=== PATIENT | female | born 1960 | race Caucasian/White ===

== ENCOUNTER 2017-07-23 09:32 | Emergency (ER) | payer BC ==
[~2017-07-23] VITALS: Ht 167.6 cm; Wt 98.4 kg
[2017-07-23 09:34] VITALS: TEMP 36.5; Ht 167.6 cm; Wt 98.4 kg
[2017-07-23] MEDS ORDERED: PRLSR20 PO (10:39)
[2017-07-23] MEDS ORDERED: LISI-729 PO (10:39)
[2017-07-23] MEDS ORDERED: LEVO150T PO (10:39)
--- NOTE | 2017-07-23 10:54 | DIAGNOSTIC IMAGING REPORT ---
R WRIST W/NAVICULAR MIN 3 VIEWS HISTORY: 57 years-old Female fall, wrist pain acute right wrist pain status post fall COMPARISON: None available TECHNIQUE: 4 views of the right wrist with navicular view FINDINGS: Mild radiocarpal, triscaphe, distal radial ulnar joint and first carpometacarpal osteoarthritis. Cortical irregularity with linear lucency is noted involving the dorsal distal radial metaphysis seen on only on the lateral projection with mild associated soft tissue swelling. The scaphoid appears intact. IMPRESSION: Subtle lucency with cortical irregularity involving the dorsal aspect distal radial metaphysis suggests acute nondisplaced fracture with mild associated soft tissue swelling. The above report was generated using voice recognition software. It may contain grammatical, syntax or spelling errors. Electronically signed by: José Luis Mcmillan M.D. 07/23/2017 10:53 AM Dictated Date/Time: 07/23/2017 10:50 AM
[2017-07-23 12:10] VITALS: BP 156/84; PULSE 86; O2SAT 96
--- NOTE | 2017-07-23 12:12 | EMERGENCY ROOM VISIT NOTE ---
History Report prepared by Riaz: Bruno Contreras Under the Supervision of: Dr. Soha Encinas D.O. First contact with patient: 11:02 Chief Complaint: WRIST PAIN Stated Complaint: FELL AND HURT RIGHT WRIST History of Present Illness The patient is a 57 year old female who presents to the Emergency Room with complaints of an ache-like right wrist pain that began this morning. She rates her pain a 7/10 in severity. Earlier this morning, the patient accidentally experienced a fall. When she fell, she broke her fall with her right hand, injuring her wrist. She did not lose consciousness or hit her head. Her pain is exacerbated with movement causing her pain to radiate up her arm. She notes that currently her right hand feels mildly weak. She has never injured her wrist before. Source of History: patient Onset: this morning Position: wrist (right) Symptom Intensity: 7/10 Quality: ache Timing: constant Modifying Factors (Worsening): movement Associated Symptoms: + weakness (mild to the area), No LOC Note: She did not hit her head. Review of Systems Did not injury herself in any other way during her fall. Past Medical & Surgical Medical Problems: (1) HTN (hypertension) Family History Diabetes mellitus Heart disease Hypertension Social History Smoking Status: Never Smoker Smokeless Tobacco Use: No Alcohol Use: none Drug Use: none Housing Status: lives alone Occupation Status: employed Current/Historical Medications Scheduled Levothyroxine Sodium (Synthroid), 150 MCG PO QAM Lisinopril (Prinivil), 15 MG PO QAM Omeprazole (Prilosec), 20 MG PO QPM Allergies Coded Allergies: No Known Allergies (Unverified , 07/23/17) Physical Exam Vital Signs Date Time Temp Pulse Resp B/P (MAP) Pulse Ox O2 Delivery O2 Flow Rate FiO2 07/23/17 12:10 86 20 156/84 96 Room Air 07/23/17 09:34 36.5 88 16 153/88 97 Room Air Physical Exam Right Wrist: Pain with palpation of the right lateral wrist and anatomical snuff box, good capillary refill and good sensation to the finger tips. Medical Decision & Procedures ER Provider Diagnostic Interpretation: Radiology results as stated below per my review and the radiologist's interpretation: R WRIST W/NAVICULAR MIN 3 VIEWS HISTORY: 57 years-old Female fall, wrist pain acute right wrist pain status post fall COMPARISON: None available TECHNIQUE: 4 views of the right wrist with navicular view FINDINGS: Mild radiocarpal, triscaphe, distal radial ulnar joint and first carpometacarpal osteoarthritis. Cortical irregularity with linear lucency is noted involving the dorsal distal radial metaphysis seen on only on the lateral projection with mild associated soft tissue swelling. The scaphoid appears intact. IMPRESSION: Subtle lucency with cortical irregularity involving the dorsal aspect distal radial metaphysis suggests acute nondisplaced fracture with mild associated soft tissue swelling. The above report was generated using voice recognition software. It may contain grammatical, syntax or spelling errors. Electronically signed by: José Luis Mcmillan M.D. 07/23/2017 10:53 AM Dictated Date/Time: 07/23/2017 10:50 AM ED Course 1102: Past medical records reviewed. The patient was evaluated in room A4. A complete history and physical exam was performed. An x-ray had been performed which revealed a slight cortical fracture of the distal radius. 1220: Upon reevaluation, the patient is resting. I discussed findings and results with her. Our manager of case were able to secure an appointment with orthopedics an approximate 40 minutes. We decided not to put her in Ortho- Glass splinting material and she will go directly there for casting. She has an appointment with [facility] at 1250. She verbalized agreement of the treatment plan. She was discharged home. Medical Decision The patient is a 57 year old female who presents to the ED with right wrist pain. Differential diagnosis includes wrist fracture, scaphoid fracture, and wrist strain. The patient fell on an outstretched hand. She has a cortical fracture of the distal radius. She is neurovascularly intact. Her pain is under control. She will go to [facility] from here. Medication Reconcilliation Current Medication List: was personally reviewed by me Blood Pressure Screening Patient's blood pressure: Elevated blood pressure Blood pressure disposition: Elevated BP felt to be situational Impression Primary Impression: Distal radius fracture, right Scribe Attestation The scribe's documentation has been prepared under my direction and personally reviewed by me in its entirety. I confirm that the note above accurately reflects all work, treatment, procedures, and medical decision making performed by me. Departure Information Dispostion Home / Self-Care Referrals Braum,Osito V. D.O. (PCP) Forms HOME CARE DOCUMENTATION FORM, IMPORTANT VISIT INFORMATION, WORK / SCHOOL INSTRUCTIONS Patient Instructions My [facility] Additional Instructions Go directly to [facility]. Apply ice. Keep it elevated. Problem Qualifiers Primary Impression: Distal radius fracture, right Encounter type: initial encounter Fracture type: closed Fracture morphology : unspecified fracture morphology Qualified Codes: S52.501A - Unspecified fracture of the lower end of right radius, initial encounter for closed fracture
== END 2017-07-23 12:20 | disposition home or self-care (01) ==
LOC: C.EDB 09:35 → C.EDA 12:20
DX: S52.501A Unspecified fracture of the lower end of right radius, initial encounter for closed fracture (principal); W19.XXXA Unspecified fall, initial encounter; I10 Essential (primary) hypertension; Z83.3 Family history of diabetes mellitus; Z82.49 Family history of ischemic heart disease and other diseases of the circulatory system; Z79.899 Other long term (current) drug therapy

== ENCOUNTER 2024-04-30 05:03 | Observation (INO) ==
--- NOTE | 2024-03-25 12:20 | PAT Medication Instructions ---
Medication Instructions Date of Service March 25, 2024 Home Medications levothyroxine 112 mcg tablet 112 mcg PO QAM lisinopril 10 mg tablet 10 mg PO QAM metformin 500 mg tablet 500 mg PO BID omeprazole 20 mg capsule,delayed release 20 mg PO QDL MEDICATION INSTRUCTIONS: DO NOT take the morning of surgery lisinopril 10 mg tablet 10 mg PO QAM metformin 500 mg tablet 500 mg PO BID Take morning of surgery With a small sip of water, OTHERWISE NOTHING TO EAT OR DRINK AFTER MIDNIGHT: omeprazole 20 mg capsule,delayed release 20 mg PO QDL levothyroxine 112 mcg tablet 112 mcg PO QAM Take evening before surgery metformin 500 mg tablet 500 mg PO BID Other Notes If you have any questions please call us at [phone] or [phone] or [phone] or [phone]
--- NOTE | 2024-04-02 10:36 | Anesthesiology Consultation ---
Date of Service April 02, 2024 Assessment & Plan (1) Encounter for pre-operative examination: - Check BSG AM DOS - Infectious disease screening: Per assessment on 04/02/24: No known recent infectious disease contacts or current infectious disease symptoms. - Outpatient joint assessment: Pt currently scheduled for inpatient pathway. If surgeon requests review for outpatient joint pathway, patient is an acceptable candidate for outpatient joint program from anesthesia standpoint pending surgeon's office assessment that patient is motivated, has good support and completes Same Day Joint Program preop requirements. Chart Review Chart Review: Acceptable Risk for Surgery and Patient seen in Pre Admission Testing Teaching & Discussion Pre-Anesthesia Teaching/Discussion Notes: Instructed NPO after midnight before surgery,except medications with 15 cc of water. Medication instructions pro vided according to the PAT guidelines. History Surgery Operation Date: 04/30/24 07:15 Proposed Procedures p Right Knee Arthroplasty - Joao Wallace MD Height/Weight Height: 5 ft 6 in Weight: 85 kg Allergies Allergy/AdvReac Type Severity Reaction Status Date / Time No Known Allergies Allergy Verified 03/21/24 09:39 Medications Home Medications Medication Instructions Recorded Confirmed Last Taken levothyroxine 112 mcg tablet 112 mcg PO QAM 03/21/24 03/21/24 Unknown lisinopril 10 mg tablet 10 mg PO QAM 03/21/24 03/21/24 Unknown metformin 500 mg tablet 500 mg PO BID 03/21/24 03/21/24 Unknown omeprazole 20 mg capsule,delayed 20 mg PO QDL 03/21/24 03/21/24 Unknown release Past Medical History Medical History Diabetes DISH (diffuse idiopathic skeletal hyperostosis) History of COVID-19 (05/2023) Symptoms resolved History of Graves' disease History of kidney stones History of radioactive iodine thyroid ablation HTN (hypertension) Hypothyroid Exercise / Class Metabolic Activity II 4-5 Yardwork/Stairs/Walk up hill (one FS: No CP, no SOB) Past Family History Family History Mother Family history of reaction to anesthesia Confusion with anesthesia at an older age Past Surgical History Surgical History History of ankle surgery Right, pins (subsequent removal) History of endometrial ablation History of left cataract surgery History of postoperative nausea and vomiting History of right cataract surgery Past Anesthesia History No Hx of Anesthesia Complications * Mother: Confusion with anesthesia at an older age History of PONV History of PONV Social History Smoking Status: Never smoker Do You Dip or Chew Tobacco: No Hx Alcohol Use: No Hx Substance Use: No substance use type: does not use Review of Systems Patient denies chest pain, shortness of breath, dyspnea on exertion, fever, chills, cough, wheezing, palpitations. Physical Exam Vital Signs BP 120/77 P 83 TEMP 97.9 SP02 99%RA RESP 16 Physical Full cervical extension range of motion. Full TMJ range of motion. TMD 3 finger breaths Mallampati Score II Dentition: intact, + implant (left lower side) Lungs: clear throughout to auscultation Cardiac: regular rate and rhythm, no murmurs noted Spine: normal Carotid arteries: negative bruit Extremities: no LE edema Lab Results Anesthesia Preop Results Results Anesthesia Widget: WBC 7.75 K/ul (4.8-10.8) 04/02/24 Hgb 12.0 g/dl (12.0-16.0) 04/02/24 Hct 37.2 % (37.0-47.0) 04/02/24 Plt 377 K/uL (130-400) 04/02/24 Na 139 mmol/L (136-145) 04/02/24 K 4.0 mmol/L (3.5-5.1) 04/02/24 Cl 103 mmol/L (98-107) 04/02/24 CO2 27 mmol/L (21-32) 04/02/24 BUN 13 mg/dl (6-23) 04/02/24 Creat 0.73 mg/dl (0.6-1.2) 04/02/24 Glucose Level 85 mg/dl (70-99(Fasting)) 04/02/24 PT 10.0 Seconds (9.0-12.0) 04/02/24 PTT 26 Seconds (21-31) 04/02/24 INR 0.9 (0.9-1.1) 04/02/24 HA1c 6.1 % (4.5-5.6) H 04/02/24 Urine Color Yellow 04/02/24 Urine Appearance Clear (Clear) 04/02/24 Urine pH 5.5 (4.5-7.5) 04/02/24 Urine Specific [place] 1.027 (1.000-1.030) 04/02/24 Urine Protein Negative (Negative) 04/02/24 Urine Glucose (UA) Negative (Negative) 04/02/24 Urine Ketones Negative (Negative) 04/02/24 Urine Blood Negative (Negative) 04/02/24 Urine Nitrite Negative (Negative) 04/02/24 Urine Bilirubin Negative (Negative) 04/02/24 Urine Urobilinogen Negative (Negative) 04/02/24 Urine Leukocyte Esterase Negative (Negative) 04/02/24 Blood Type A Positive 04/02/24 Antibody Screen NEGATIVE 04/02/24 Testing Electrocardiogram Date: 04/02/24 NSR at 79bpm. "Normal ECG" Chest X-Ray Date: 04/02/24 FINDINGS: No lines and tubes are seen. The cardiomediastinal silhouette is normal. The lungs are clear. No evidence of pleural effusion or pneumothorax. IMPRESSION: No acute chest disease.
--- NOTE | 2024-04-27 14:03 | History & Physical Report ---
Date of Service April 27, 2024 Assessment & Plan (1) Osteoarthritis of right knee: Plan: Right knee advanced osteoarthritis [id number]. Plan is to proceed with a right total knee replacement T[employer]z [employer] Nephew journey total knee replacement with PSI guide. Osteoarthritis type: primary Qualified Code(s): M17.11 - Unilateral primary osteoarthritis, right knee History of Present Illness Chief Complaint: Chronic right knee pain Primary Care Provider: Osito Redd DO 64-year-old female with progressive pain and disability due to right knee osteoarthritis. Does have bilateral knee arthritis but the left knee is not as severe as the right. She has had injections in her knees but now these are not being effective on the right knee. Patient denies headaches, sweats, fevers, chills, double vision, blurred vision, cough, sore throat, chest pain, sob, wheezing, n/v/d/c, numbness, tingling, fatigue, urinary symptoms, mood disorders. ROS positive for hypertension, diabetes ,thyroid disease, osteoarthritis of the spine, acid reflux ,hiatal hernia ,kidney stones. Allergies Allergy/AdvReac Type Severity Reaction Status Date / Time No Known Allergies Allergy Verified 03/21/24 09:39 Home Medications Medication Instructions Recorded Confirmed Type levothyroxine 112 mcg tablet 112 mcg PO QAM 03/21/24 03/21/24 History lisinopril 10 mg tablet 10 mg PO QAM 03/21/24 03/21/24 History metformin 500 mg tablet 500 mg PO BID 03/21/24 03/21/24 History omeprazole 20 mg capsule,delayed 20 mg PO QDL 03/21/24 03/21/24 History release Past Med/Surg History Problem List (Updated 04/27/24 @ 14:01 by Joao Wallace MD) Osteoarthritis of right knee Encounter for pre-operative examination Distal radius fracture, right (Acute) HTN (hypertension) (Chronic) Medical History History of COVID-19 (05/2023) Symptoms resolved DISH (diffuse idiopathic skeletal hyperostosis) History of kidney stones History of radioactive iodine thyroid ablation History of Graves' disease Hypothyroid HTN (hypertension) Diabetes Surgical History History of postoperative nausea and vomiting History of endometrial ablation History of left cataract surgery History of right cataract surgery History of ankle surgery Right, pins (subsequent removal) Family History Mother Family history of reaction to anesthesia Confusion with anesthesia at an older age Social History Smoking Status: Never smoker Do You Dip or Chew Tobacco: No; Hx Alcohol Use: No Hx Substance Use: No Preferred Language: Tajik Communication Ability: Effective County Attorney Required: No Beliefs That Will Affect Care: None Current Living Situation: Alone Other Information That Helps Us Care for You: No Feels Safe at Home: Yes Assistive Devices: Glasses Review of Systems All systems reviewed & are unremarkable except as noted in HPI & below Physical Exam Constitutional: WD/WN, vitals as above Respiratory: normal respiratory effort; no respiratory distress Cardiovascular: Rate/Rhythm: regular rate and regular rhythm Musculoskeletal: Right knee 10 to 100 degrees range of motion. Mild crepitation with a valgus knee and lateral joint line tenderness. No instability. Skin: no rashes, warm and dry Neurologic: normal touch/pain/proprioception Psychiatric: A+Ox3, euthymic affect Results & Data Diagnostic Findings Right knee x-rays weightbearing films [id number] lateral compartment with patellofemoral and lateral compartment osteoarthritis. Valgus knee alignment.
[2024-04-30] MEDS: ACETAMINOPHEN 500 MG TAB PO SCH ×2 (05:59→13:23)
[2024-04-30] MEDS: METOCLOPRAMIDE HCL 10 MG TABLET PO SCH (06:00)
[2024-04-30] MEDS: FAMOTIDINE 20 MG TAB PO SCH (06:00)
[2024-04-30] MEDS: LR 60ML/HR IV SCH (06:00)
[2024-04-30] MEDS: LR 500ML BOLUS, THEN 15ML/HR IV SCH (06:00)
[2024-04-30] MEDS: CeleBREX 200 MG CAP PO SCH (06:00)
[2024-04-30] MEDS: GABAPENTIN 300 MG CAP PO SCH (06:00)
[2024-04-30] MEDS ORDERED: BUPIVACAINE 0.5 % 5 MG/1 ML PF 10ML VIAL ONE (06:15)
[2024-04-30] MEDS ORDERED: ROPIVACAINE 0.5% 5 MG/ML 30 ML VIAL ONE (06:15)
[2024-04-30] MEDS ORDERED: ATROPINE SULFATE 0.1 MG/ML 10ML SYR IV PRN (06:30)
[2024-04-30] MEDS ORDERED: ONDANSETRON INJ 2 MG/ML 2 ML VIAL IV PRN (06:30)
[2024-04-30] MEDS ORDERED: ePHEDrine sulfate 50 MG/ML AMP IV PRN (06:30)
[2024-04-30] MEDS ORDERED: fentaNYL citrate PF 100 MCG/2 ML VIAL IV PRN (06:30)
[2024-04-30] MEDS ORDERED: MIDAZOLAM HCL 1 MG/ML 2ML VIAL ONE ×2 (06:43)
[2024-04-30] MEDS: TRANEXAMIC ACID 1,000 MG **IV Pre-op IV SCH (07:01)
--- NOTE | 2024-04-30 07:03 | History & Physical Bridge Note ---
Date of Service April 30, 2024 History & Physical Bridge Note I have examined the patient, reviewed the History & Physical and in the interval since the performance of the History & Physical I have noted the following changes of clinical significance: no changes noted
[2024-04-30] MEDS: ceFAZolin 2000MG 2,000 MG/15 ML SYR IV SCH ×2 (07:17→15:22)
[2024-04-30] MEDS ORDERED: KETAMINE HCL 10MG/ML SYR ONE (08:07)
[2024-04-30] MEDS ORDERED: fentaNYL citrate PF 100 MCG/2 ML VIAL ONE (08:08)
[2024-04-30] MEDS ORDERED: PROPOFOL IV EMULSION 10 MG/ML 20 ML VIAL IV ONE (08:09)
[2024-04-30] MEDS ORDERED: ONDANSETRON INJ 2 MG/ML 2 ML VIAL ONE (08:12)
[2024-04-30] MEDS: ORTHO JOINT ANESTHETIC ONE (08:18)
[2024-04-30] MEDS: TRANEXAMIC ACID 1,000 MG **IV Intra-op IV SCH (08:36)
[2024-04-30] MEDS: ROPIV 0.5% 246mg, Ketorolac 30mg, EPINEPHrine 0.5mg in NSS INFIL SCH (08:45)
--- NOTE | 2024-04-30 08:51 | Operative Report ---
Post Operative Report Pre & Post Diagnosis Operation Date: 04/30/24 07:00 Pre-Op Diagnosis: Right Knee Osteoarthritis Post-Op Diagnosis: Right Knee Osteoarthritis I identified the patient and participated in the time-out.: Yes Procedure Operation Date: 04/30/24 07:00 Actual Procedures p Right Knee Arthroplasty(Right), darnell and Acticoat superficial wound VAC application- Joao Wallace MD Surgeon Joao Wallace MD [place] Operator Jason ROWLAND Estimated Blood Loss 5 Findings Consistent with Post-Op Diagnosis Specimens Bone cuts Drains 2 Hemovac Anesthesia Type MAC Spinal Regional Complications none Disposition Disposition: Recovery Room Indications 64-year-old female with chronic progressive osteoarthritis right knee failed conservative management. X-rays demonstrate she is [id number] lateral compartment shows tricompartmental osteoarthritic changes. Description of Procedure The patient was taken to the operating room and anesthetized under spinal MAC regional block. Patient was placed supine on the the operating table. A pneumatic tourniquet was placed about the right upper thigh. The knee exam demonstrated valgus knee [id number] lateral compartment no instability good range of motion aside from about a 5 degree flexion contracture. The involved leg was elevated exsanguinated with Esmarch bandage and the pneumatic tourniquet was raised to 275 millimeters mercury. A longitudinal incision was made across the anterior knee. Skin flaps were elevated. An incision was made into the medial retinaculum and extended up into the mid third of the quadriceps tendon and extended down to the tibial tubercle. Intra-articular findings demonstrated tricompartmental osteoarthritis grade 4 changes on the medial femoral condyle grade 4 lateral femoral condyle and tibial plateau grade 4 patella trochlear groove area. The knee was exposed by excising cruciate ligaments and menisci. The infrapatellar fat pad was resected. The fat pad over the anterior femur at the upper aspect of the articular surface was resected for placement of the component in that area. A subperiosteal peel lateral release was performed around the patella. The Tellez [employer] Nephew journey 2.0 posterior stabilized total knee arthroplasty system was utilized for the procedure. The custom femoral cutting guide was pinned in position. The distal femoral cut was made. The size 5, 5 in 1 cutting block was placed. The anterior posterior and chamfer cuts were made. The knee was extended and a free hand cut technique was performed to the patella. The patella width was measured and the width was reproduced using a 32 patella component. The excess lateral facet was beveled off to prevent any impingement. 3 drill holes are made for the patella component pegs. The tibia was then subluxed. The custom tibial cutting block was pinned in position and the proximal tibial cut was made with the oscillating saw. Flexion and extension gaps were balanced. Lateral capsular, IT band and popliteus tendon releases were required. The size 4 tibial trial was externally rotated in line with the tibial tubercle and pinned in position. The punch for the stem was used. The femoral trial was inserted and centered the notch cutting devices were used and the collet was placed. Tibial trials were used for the insert. The size 12 trial gave balanced ligaments through full range of motion. Patella tracking was assessed with range of motion. The patella tracked centrally. The trials were removed. The Orthomix anesthetic cocktail was injected per protocol. The cut bone surfaces and soft tissue were copiously irrigated with pulsatile lavage saline solution. The final components were cemented with Refobacin cement. The final components were Tellez [employer] Nephew journey 2.0 size 5 right posterior stabilized femoral component, right tibial component size 4, 12 mm tibial polyethylene and a 32 mm symmetrical patella. Xperience irrigation was placed over metal tray prior to polyethyle insertion. After the cement cured, the knee was then copiously irrigated with pulsatile lavage Xperience solution. 2 drains were brought out laterally connected to Hemovac. The quadriceps tendon and medial retinaculum were closed with #2 FiberWire sutures in the medial retinaculum and distal quadriceps tendon apex of the quadriceps tendon repair and another suture over the level of the tibial polyethylene and additionally 0 strata fix from the superior quad tendon incision down to the inferior pole the patella and the inferior medial reti naculum was repaired with [id number] #1 Vicryl sutures. The knee was taken through full range of motion and repair was secure. Knee range of motion was 0 through 130 degrees. the subcutaneous tissues were closed with 2-0 Vicryl sutures. The skin was closed with surgical ophelia. A darnell and Acticoat superficial wound VAC was applied. The tourniquet was let down and the patient had good capillary refill to the extremity. The patient tolerated the procedure well. My physician senior executive assistant Jason ROWLAND participated as funeral assistant and was integral part in all aspects of the procedure including prepping, draping, leg positioning, soft tissue retraction, instrument management and assisted in the closure , darnell and Acticoat superficial wound VAC application and will participate in postoperative care the patient. I attest to the content of the Intraoperative Record and any orders documented therein. Any exceptions are noted below.
--- NOTE | 2024-04-30 09:59 | Anesthesiology Progress Note ---
Date of Service April 30, 2024 Anesthesia Post Procedure Vital Signs Vital Signs: Temp Pulse Pulse Resp BP Pulse Ox O2 Del Method 04/30/24 09:50 75 15 137/80 100 Room Air 04/30/24 09:40 74 15 139/83 100 Room Air 04/30/24 09:33 36.3 C L 82 18 134/70 100 Oxymask 04/30/24 05:56 36.5 C 79 20 139/90 99 Room Air O2 Flow Rate 04/30/24 09:50 04/30/24 09:40 04/30/24 09:33 4 04/30/24 05:56 Notes Mental Status: alert / awake / arousable Patient Amnestic to Procedure: Yes Nausea / Vomiting: adequately controlled Pain: adequately controlled Airway Patency, RR, SpO2: stable & adequate BP & HR: stable & adequate Hydration State: stable & adequate Neuraxial Anesthesia: was administered and sensory block is resolving Anesthetic Complications: no major complications apparent
--- NOTE | 2024-04-30 10:02 | XRay Report ---
XR knee RT 1 or 2V routine CLINICAL HISTORY: Postoperative evaluation. COMPARISON: Right knee MRI March 18, 2024. FINDINGS: Alignment of the total right knee arthroplasty is anatomic. There is no periprosthetic fra cture or unexpected radiopaque foreign body. There are skin ophelia and surgical drains. IMPRESSION: Expected findings following total right knee arthroplasty. ACT 112: Negative or not required by law. Electronically signed by: Kenrick Mccabe M.D. 04/30/2024 10:00 AM
[2024-04-30] MEDS ORDERED: PHARMACY GLYCEMIC MGMT CONSULT PRN (10:08)
[2024-04-30] MEDS ORDERED: bisacodyL 10 MG SUPP PR PRN (10:08)
[2024-04-30] MEDS ORDERED: diphenhydrAMINE Capsule 25 MG CAP PO PRN (10:08)
[2024-04-30] MEDS ORDERED: MAGNESIUM HYDROXIDE SUSP 30 ML UDC PO PRN (10:08)
[2024-04-30] MEDS ORDERED: HYDROmorphone INJ 0.5 MG/0.5 ML SYR IV PRN (10:08)
[2024-04-30] MEDS ORDERED: ALUMINUM/MAGNESIUM SUSP 30 ML UDC PO PRN (10:08)
[2024-04-30] MEDS ORDERED: NALOXONE HCL 0.4 MG/1 ML VIAL/CARP IV PRN (10:08)
[2024-04-30] MEDS ORDERED: GLUCOSE 10 TAB/TUBE PO PRN (11:00)
[2024-04-30] MEDS ORDERED: GLUCAGON FOR INJ 1 MG VIAL SQ PRN (11:00)
[2024-04-30] MEDS ORDERED: DEXTROSE 50% 50 ML SYRINGE IV PRN (11:00)
[2024-04-30] MEDS ORDERED: GLUCOSE 40% GEL 15 GM TUBE PO PRN (11:00)
[2024-04-30] MEDS ORDERED: CARBOHYDRATES FOR HYPOGLYCEMIA PO PRN (11:00)
--- OUTSIDE RECORDS SUMMARY | 2024-04-30 11:48 | External Medical Summary | Summary of Care ---
Author Name Unknown Organization [facility] Address [address] [address] Phone [phone] Care Team Providers Care Dress Fitter Name Role Phone Tramaine Garvin DO, David Vincent Primary Care Provid er Reason for Visit * Reason Onset Date Comments Medication Refill 04/03/2024 Encounter Details Date Type Department Care Team (Late st Contact Info) Description 04/03/[address] [facility] [address] [place] [address] Nadia Redd Jr., DO [address] [place] [address] HTN, goal below 140/90 Allergies No known active allergiesdocumented as of this encounter (statuses as of 04/04/2024) Medications Medication Sig Dispensed Refills Start Date End Date Status metFORMIN HCl 500 MG Oral Tablet (Glucophage) Take 1 Tablet by mouth 2 times a day with morning and evening meals. 180 Tablet 2 01/09/2024 Active Omeprazole 20 MG Oral Capsule Delayed Release Take 1 Capsule by mouth in the morning. 90 Capsule 2 01/09/2024 Active Levothyroxine Sodium 112 MCG Oral Tablet (Levoxyl) Take 1 Tablet by mouth in the morning. 90 Tablet 2 01/24/2024 Active Lisinopril 10 MG Oral Tablet (Prinivil)Indicat ions:HTN, goal below 140/90 Take 1 Tablet by mouth in the morning. 90 Tablet 1 04/04/2024 Active Lisinopril 10 MG Oral Tablet (Prinivil)Indicat ions:HTN, goal below 140/90 Take 1 Tablet by mouth in the morning. 90 Tablet 1 09/03/2023 04/03/2024 Discontinued (Refill) documented as of this encounter (statuses as of 04/04/2024) Active Problems Problem Noted Date Diagnosed Date Hx of actinic keratosis 07/24/2022 Type 2 diabetes mellitus wit h hemoglobin A1c goal of less than 7.0% 04/21/2020 Hypothyroidism, postablative 01/14/2016 Gastroesophageal reflux disease with esophagitis 01/14/2016 Multiple thyroid nodules 12/15/2015 Overview: Subcm, 1 each lobe Advance directive on file 04/08/2014 Overview: No, Advance Directive brochure given to patient at prior appointment. UNSPECIFIED ABNORMAL MAMMOGR AM-FOCAL ASYMMETRY IN LEFT BREAST 02/06/2011 Diaphragmatic hernia 11/05/2008 Overview: Incidental finding on CT abd/pelvis. Started on omeprazole. HTN, goal below 140/90 10/21/2007 documented as of this encounter (statuses as of 04/04/2024) Resolved Problems Problem Noted Date Diagnosed Date Resolved Date Diabetes mellitus without complication 04/21/2020 04/21/2020 Prediabetes 07/01/2018 04/29/2020 Overview: Per Prediabetes protocol #1 IFG (impaired fasting glucose) 04/03/2018 08/09/2020 HYPOTHYROIDISM NOS 07/22/2007 6 documented as of this encounter (statuses as of 04/04/2024) Immunizations Name Administration Dates Next Due COVID-19 mRNA, LNP-s, No Pre serve, 10 mcg, Ages 5-11 (Pfizer) 04/27/2021 COVID-19 mRNA, LNP-s, No Pre serve, 2-Dose Series (Freebase) 08/24/2020,07/27/2020 Covid-19, Mrna, Lnp-s, Pf, B ivalent, 30 Mcg, IM, 12 yrs and above (Freebase) 03/07/2022 Pneumococcal Conjugate Vacci ne, 20-valent ([id number]) 03/30/2023 Seasonal Influenza Vac., MDV , IM, 0.5 mL (Fluzone) 03/29/2016,04/07/2015,03/25/2013,2011,03/13/2011,05/02/2008 Seasonal Influenza Virus Vac cine, Unspecified Formulation 03/22/2021,04/04/2018 Seasonal Influenza, High Dos e, Trivalent, PF, IM (Fluzone HD) 03/01/2024 Seasonal Influenza, PF, 6 M & above, IM , (FluLaval or Fluzone) 03/03/2023,03/29/2020 Seasonal Influenza, QUAD, wi th Preserv, 6 mons & Above, 0.5 mL, IM 03/29/2017 Seasonal Influenza, Quadriva lent Hd (Fluzone Hd) 03/04/2022 TD, Preservative Free 04/18/2019 TDAP, Age 7 and older, IM (Adacel) 01/24/2008 Varicella Zoster Vaccine (Adult) 06/05/2022,03/18 Zoster Vaccine Recombinant (Shingrix) 06/05/2022 ,04/03/2022 documented as of this encounter Social History Tobacco Use Types Packs/Day Years Used Date Smoking Tobacco: Never Smokeless Tobacco: Never Alcohol Use Standard Drinks/Week Comments No 0 (1 standard drink = 0.6 oz pur e alcohol) PHQ-2 Answer Date Recorded PHQ Adult Total Score 0 10/01/2023 Hunger Vital Sign Answer Date Recorded Within the past 12 months, y ou worried that your food would run out before you got the money to buy more. Never true 10/01/19 24 Within the past 12 months, t he food you bought just didn't last and you didn't have money to get more. Never true 10/01/2023 Childcare Answer Date Recorded Do you feel overwhelmed with taking care of a child, family member or friend? No 10/01/2023 Does your family need help f inding childcare? (Household - for ages 0-17 years) Not on file 10/01/2023 Clothing Answer Date Recorded Have you been unable to get clothing when it was really needed? No 10/01/2023 Is your family able to get c lothes or diapers when needed? (Household - for ages 0-17 years) Not on file 10/01/2023 Personal Safety Answer Date Recorded Do you feel unsafe or have concerns for your saf ety? No 10/01/2023 Do you have concerns for you r family's safety? (Household - for ages 0-17 years) Not on file 10/01/2023 Utilities Answer Date Recorded Do you have trouble paying y our heating, water, or electric bill? No 10/01/2023 Is your family able to pay t he heat, water, or electric bill? (Household - for ages 0-17 years) Not on file 10/01/2023 Does your family have access to good internet? (Household - for ages 0-17 years) Not on file 10/01/2023 Employment Status Answer Date Recorded Are you unemployed or without regular income? No 10/01/2023 Does the household have a re gular source of income? (Household - for ages 0-17 years) Not on file 10/01/2023 Social Connections Answer Date Recorded How often do you feel lonely or isolated from th ose around you? Never 10/01/2023 Financial Resource Strain Answer Date R ecorded Do you have any trouble payi ng for your medications, or do you think you might in the future? No 10/01/2023 Does your family have troubl e paying for medicine? (Household - for ages 0-17 years) Not on file 10/01/2023 Transportation Needs Answer Date Record ed READ ONLY Do you have troubl e getting a ride to medical visits or work? Never True 10/01/2023 Does your family have a hard time getting a ride to doctors visits? (Household - for ages 0-17 years) Not on file 10/01/2023 Has lack of transportation k ept you from medical appointments, meetings, work, or from getting things needed for daily living? Check all that apply. (Adult - for ages 18 years and over) Not on file 10/01/2023 Do you (or your family) have trouble finding or paying for a ride (transportation)? (Household - for ages 0-17 years) Not on file 10/01/2023 Housing Stability Answer Date Recorded Do you currently live in a s helter or have no steady place to sleep at night? No 10/01/2023 READ ONLY Do you think you a re at risk of becoming homeless? No 10/01/2023 Does your family worry about paying for your home or becoming homeless? (Household - for ages 0-17 years) Not on file 0 10/01/2023 Are you homeless or worried that you might be in the future? (Adult - for ages 18 years and over) Not on file Are you (or your family) jeni eless or worried that you might be in the future? (Household - for ages 0-17 years) Not on file Food Insecurity Answer Date Recorded Do you need food for this week? No 10/01/2023 Are you able to get enough f ood for your family? (Household - for ages 0-17 years) Not on file 10/01/2023 Does your family need food t his week? (Household - for ages 0-17 years) Not on file 10/01/2023 Do you always have enough fo od for your family? (Household - for ages 0-17 years) Not on file 10/01/2023 Sex and Gender Information Value Date Recorded Sex Assigned at Female 04/21/2020 6:38 PM EST Gender Identity Female 04/21/2020 6:38 PM EST Sexual Orientation Choose not to disclose 2019 6:38 PM EST Job Start Date Occupation Industry Not on file Not on file Not on file documented as of this encounter Miscellaneous Notes * Telephone Encounter - Devora Marks RPh - 04/04/2024 11:32 PM EDTSigned Prescriptions: Disp Refills Lisinopril 10 MG Oral Tablet (Prinivil) 90 Tab*1 Sig: Take 1 Tablet by mouth in the morning.Authorizing Provider: NADIA REDD JR User: DEVORA MARKS documented in this encounter Plan of Treatment Upcoming Encounters Date Type Department Care Team (Late st Contact Info) Description 04/09/2024 5:40 PM EDT Office Visit [facility] [address] [place] [address] Tramaine Garvin, Nadia Gordon DO [address] [place] [address] Health Maintenance Due Date Last Done Comments Hepatitis C Screening 1976 Colonoscopy 2003 Sigmoidoscopy 2003 Fecal Occult Blood Test 10/29/2014 10/30/19 14, 09/04/2012, 08/23/2011, Additional history exists Zoster Vaccines (3 of 3) 07/31/2022 022, 06/05/2022, 04/03/2022, Additional history exists DXA Scan 2023 COVID-19 Vaccine ( season) 2024 03/07/2022, 04/27/2021, 08/24/2020, Additional history exists Diabetic Foot Exam 03/30/2024 03/30/2023, 1 , 03/22/2021 Adult Wellness Visit 2024 Diabetic Eye Exam 08/29/2024 08/30/2023, , 11/01/2021, Additional history exists Albumin/Creatinine Ratio 09/11/2024 024, 09/18/2022, 04/05/2021 Depression Screening 09/30/2024 10/01/2023 HbA1c 09/30/2024 04/01/2024, 08/17, 03/14/2023, Additional history exists Mammogram 02/12/2025 02/13/2024, 01/16, 01/30/2022, Additional history exists GFR 04/01/2025 04/01/2024, 08/17, 03/14/2023, Additional history exists TSH 04/01/2025 04/01/2024, 08/17, 03/14/2023, Additional history exists Cologuard 12/18/2025 12/18/2022, 11/17, 12/07/2022 Colorectal Cancer Screening 12/18/2025 Lipid Panel 04/01/2029 04/01/2024, 08/17, 03/14/2023, Additional history exists DTap/Tdap Vaccines (3 - Td or Tdap) 04/18/2029 04/18/2019, 01/24/2008 Cervical Cancer Screening Discontinued Pap Smear Discontinued 12/14/2015, 10/16, 09/04/2012, Additional history exists Pneumococcal Vaccine: 65+ Years Completed 03/30/2023 Influenza Vaccine (FLU shot) Completed 03/01/2024, 03/03/2023, 03/04/2022, Additional history exists HPV (Gardasil) Vaccine Aged Out No lo nger eligible based on patient's age to complete this topic HPV/Co-Test Discontinued Hepatitis B Vaccine Aged Out No longe r eligible based on patient's age to complete this topic MENINGOCOCCAL (MENACTRA/MENVEO) Aged Out No longer eligible based on patient's age to complete this topic documented as of this encounter Medical Devices Implanted Type Area Secured Entrance Monitor Device Identifier Shelf Expiration Date Model / Serial / Lot Lens Li61ao 13.00mm 15.50 - [id number] - [id number] Implanted:Qty: 1 on 12/21/2022 by Heraclio Dutta MD at OR [facility] Right: Eye [employer] 09/16/2027 [id number] / [id number] / [id number] Lens Li61ao 13.00mm 15.50 - [id number] - [id number] Implanted:Qty: 1 on 12/28/2022 by Heraclio Dutta MD at OR [facility] Left: Eye [employer] 08/16/2027 [id number] / [id number] / [id number] documented as of this encounter Visit Diagnoses Diagnosis HTN, goal below 140/90 Unspecified essential hypertension documented in this encounter Advance Directives * No Code (Latest Code Status on File) Date Activated Date Inactivated Comments 12/28/2022 7:23 AM 12/28/2022 1:33 PM This order r eflects the patients wishes and were consensually agreed upon. Question Answer Comments Discussion of Advance Directives occurred with: Patient Does the patient have a Living Will? No Does the patient have Health Care Power of Attor jona? No * No Code Date Activated Date Inactivated Comments 12/21/2022 6:35 AM 12/21/2022 12:46 PM This order re flects the patients wishes and were consensually agreed upon. Question Answer Comments Discussion of Advance Directives occurred with: Patient Does the patient have a Living Will? No Does the patient have Health Care Power of Attor jona? No Care Teams Dress Fitter Relationship Specialty Start Date End Date Nadia Redd Jr., DO [address] [place] [address] PCP - General Family Medicine 01/16/11 documented as of this encounter
--- OUTSIDE RECORDS SUMMARY | 2024-04-30 11:48 | External Medical Summary | Summary of Care ---
Author Name Unknown Organization [facility] Address [address] [address] Phone [phone] Care Team Providers Care Welding Machine Operator Name Role Phone Tramaine Garvin DO, David Vincent Primary Care Provid er Reason for Visit * Reason Onset Date Comments Follow Up Pre-op Surgery 1 06/30/[address] Wallace right knee replacement. Routine Exam 04/09/2024 Encounter Details Date Type Department Care Team (Late st Contact Info) Description 04/09/2024 5:40 PM EDT Office Visit [facility] [address] [address] Osito Redd Jr., DO [address] [address] Pre-op evaluation*; Type 2 diabetes mellitus with hemoglobin A1c goal of less than 7.0% ([facility]); Hypothyroidism, postablative; Multiple thyroid nodules; HTN, goal below 140/90; Gastroesophageal reflux disease with esophagitis, unspecified whether hemorrhage Allergies No known active allergiesdocumented as of this encounter (statuses as of 04/09/2024) Medications Medication Sig Dispensed Refills Start Date [...] 01/24/2024 Active Lisinopril 10 MG Oral Tablet (Prinivil)Indication s:HTN, goal below 140/90 Take 1 Tablet by mouth in the morning. 90 Tablet 1 04/04/2024 Active documented as of this encounter (statuses as of 04/09/2024) Active Problems Problem Noted Date Diagnosed Date [...] as of this encounter (statuses as of 04/09/2024) Resolved Problems Problem Noted Date Diagnosed Date Resolved Date Diabetes mellitus without complication 04/21/2020 04/21/2020 Prediabetes 07/01/2018 04/29/2020 Overview: Per Prediabetes protocol #1 IFG (impaired fasting glucose) 04/03/2018 08/09/2020 HYPOTHYROIDISM NOS 07/22/2007 6 documented as of this encounter (statuses as of 04/09/2024) Immunizations Name Administration Dates Next Due COVID-19 mRNA, LNP-s, No Pre serve, 10 mcg, Ages 5-11 (Pfizer) 04/27/2021 COVID-19 mRNA, LNP-s, No Pre serve, 2-Dose Series (Adonit) 08/24/2020,07/27/2020 Covid-19, Mrna, Lnp-s, Pf, B ivalent, 30 Mcg, IM, 12 yrs and above (Pfizer) 03/07/2022 Covid-19, Mrna, Lnp-s, Pf, B ivalent, 50 Mcg, IM, 12 yrs and above (Moderna) 03/18/2024 Pneumococcal Conjugate Vacci ne, 20-valent ([id number]) 03/30/2023 Seasonal Influenza Vac., MDV , IM, [...] Date Smoking Tobacco: Never Smokeless Tobacco: Never Tobacco Cessation:Counseling Given: No Alcohol Use Standard Drinks/Week Comments No 0 [...] 10/01/2023 Does the household have a re lar source of income? (Household - for ages [...] on file documented as of this encounter Last Filed Vital Signs Vital Sign Reading Time Taken Comments Blood Pressure 110/68 04/09/2024 5:21 PM EDT Pulse 88 04/09/2024 5:21 PM EDT Temperature 36.3 C (97.3 F) 04/09/2024 5:21 PM ED T Respiratory Rate 16 04/09/2024 5:21 PM EDT Oxygen Saturation 98% 04/09/2024 5:21 PM EDT Inhaled Oxygen Concentration - - Weight 84.8 kg (187 lb) 04/09/2024 5:21 PM EDT Height 167.6 cm (5' 6") 04/09/2024 5:21 PM EDT Body Mass Index 30.18 04/09/2024 5:21 PM EDT documented in this encounter Progress Notes * Osito Redd Jr., DO - 04/09/2024 5:37 PM EDT Subjective: Erika Toledo is a 64 year old female. Chief Complaint Patient presents with Follow Up Pre-op Surgery 04/30/[address] Wallace right knee replacement. Routine Exam HPI: Patient presents today for pre op evaluation as well as 6 month follow-up. Overall doing well,no new complaints. No personal or family history of problems with surgery or anesthesia. No CP or SOB. Other than knee pain, no problems climbing flight of stairs. Already met with surgical team and [facility] and had testing done there- not available for review at this time. Had labs for 6 month follow up and reviewed- overall stable, lipids up slightly. Hope to see more exercise with knee replacement, but if not improving or getting worse, start statin. No other new complaints. Results for orders placed or performed in visit on 04/01/24 HEMOGLOBIN A1C Result Value Ref Range Hemoglobin A1C 6.0 (H) 4.0 - 5.6 % Estimated Average Glucose 126 (H) <126 mg/dL LIPID PANEL WITH DIRECT LDL IF TG IS HIGH Result Value Ref Range Triglycerides 223 (H) <=174 mg/dL Cholesterol 180 <200 mg/dL HDL Cholesterol 44 (L) >49 mg/dL Non-HDL Cholesterol 136 <=159 mg/dL COMPREHENSIVE METABOLIC PANEL Result Value Ref Range BUN 12 6 - 20 mg/dL CREATININE 0.8 0.5 - 1.0 mg/dL EGFR 86 >=60 mL/min SODIUM 139 135 - 146 mmol/L POTASSIUM 4.7 3.5 - 5.1 mmol/L CHLORIDE 103 98 - 107 mmol/L CO2 24 22 - 32 mmol/L ANION GAP 12 7 - 15 mmol/L GLUCOSE 96 70 - 120 mg/dL Albumin 4.4 3.8 - 5.0 g/dL AST 21 10 - 35 U/L Alkaline Phosphatase 85 35 - 130 U/L Bilirubin, Total 0.3 <=1.2 mg/dL CALCIUM 9.5 8.4 - 10.2 mg/dL Protein 7.3 6.0 - 8.3 g/dL ALT 24 10 - 35 U/L TSH WITH FREE T4 IF INDICATED Result Value Ref Range TSH 3.55 0.27 - 4.20 uIU/mL LDL CHOLESTEROL (DIRECT MEASURE) Result Value Ref Range LDL Cholesterol (Direct Measure) 111 <=129 mg/dL PHM: Patient Active Problem List Diagnosis HTN, goal below 140/90 Diaphragmatic hernia UNSPECIFIED ABNORMAL MAMMOGRAM-FOCAL ASYMMETRY IN LEFT BREAST Advance directive on file Hypothyroidism, postablative Multiple thyroid nodules Gastroesophageal reflux disease with esophagitis Type 2 diabetes mellitus with hemoglobin A1c goal of less than 7.0% (HCC) Hx of actinic keratosis Current Outpatient Medications Medication Sig Dispense Refill metFORMIN HCl 500 MG Oral Tablet (Glucophage) Take 1 Tablet by mouth 2 times a day with morning andevening meals. 180 Tablet 2 Omeprazole 20 MG Oral Capsule Delayed Release Take 1 Capsule by mouth in the morning. 90 Capsule 2 Levothyroxine Sodium 112 MCG Oral Tablet (Levoxyl) Take 1 Tablet by mouth in the morning. 90 Tablet2 Lisinopril 10 MG Oral Tablet (Prinivil) Take 1 Tablet by mouth in the morning. 90 Tablet 1 No current facility-administered medications for this visit. Past Medical History: Diagnosis Date Allergic rhinitis due to other allergen Hiatal hernia History of nephrolithiasis IFG (impaired fasting glucose) 04/03/2018 Multiple thyroid nodules 12/2015 subcm + calcification rt and left Obesity (BMI 30.0-34.9) since 2008 down from BMI 35 in 2007 and before Toxic diffuse goiter 1998 [facility] for 'Graves' Disease' 1999+2000 Past Surgical History: Procedure Laterality Date BIOPSY OF BREAST, OPEN 12/2003 Breast Biopsy, Benign Disease DILATION AND CURETTAGE (D&C) 2009 D&C HYSTEROSCOPY,DIAGNOSTIC 2009 with ablation LEG/ANKLE SURGERY NEC 01/18/12 right ankle REMOVE CATARACT, INSERT LENS PROSTH Right 12/21/2022 RIGHT EXTRACAPSULAR CATARACT REMOVAL WITH INTRAOCULAR LENS performed by Heraclio Dutta MD at OR [facility] REMOVE CATARACT, INSERT LENS PROSTH Left 12/28/2022 LEFT EXTRACAPSULAR CATARACT REMOVAL WITH INTRAOCULAR LENS performed by Heraclio Dutta MD at OR [facility] Family History Problem Relation Name Age of Onset Hypertension Mother Breast Cancer Mother 70 No Past Hx Father No Past Hx Sister Breast Cancer Aunt (Maternal) 70 Review of patient's allergies indicates: No Known Allergies Extensive ROS Constitutional (f/c/wt/vision/hearing): Negative Resp (cough/sob/daigle): Negative CV (cp/palp/fluttering/diaphoresis/daigle/pnd):Negative GI (n/v/d/hrtburn): Negative Endo (hair/cold or heat intol/ 3 p's): Negative Neuro (shaking/weak/fatigu/parasthesi/): Negative Skin (rash/easy bruis/xerosis): Negative (nocturia/hesit/drib/sexual review): Negative Objective: BP 110/68 | Pulse 88 | Temp 36.3 C (97.3 F) | Resp 16 | Ht 1.676 m (5' 6") | Wt 84.8 kg (187 lb) | SpO2 98% | BMI 30.18 kg/m | BSA 1.99 m Physical Exam: General: alert, healthy, no distress Head: Normocephalic, No masses, lesions, tenderness or abnormalities Eye Exam: PERRLA, EOMI, Conjunctiva are pink and non-injected, fundi benign, sclera clear Ears: External ears normal, Canals clear, TM's Normal Oropharynx: no exudate, no erythema and lips, buccal mucosa, and tongue normal Neck: supple, no adenopathy, no bruits, thyroid normal size, non-tender, without nodularity Heart: regular rate & rhythm, no murmurs and no gallops Lungs: clear to auscultation Abdomen: abdomen soft, nontender, normal bowel sounds and no masses or organomegaly Extremities: no edema, no clubbing or cyanosis Neuro Exam: alert & oriented x 3 with fluent speech, no focal motor/sensory deficits, gait normal, reflexes normal and symmetric, Skin: skin color, texture, turgor are normal, no rashes or significant lesions ASSESSMENT: ICD-10-CM 1. Pre-op evaluation Z01.818 2. Type 2 diabetes mellitus with hemoglobin A1c goal of less than 7.0% (HCC) E11.9 3. Hypothyroidism, postablative E89.0 4. Multiple thyroid nodules E04.2 5. HTN, goal below 140/90 I10 6. Gastroesophageal reflux disease with esophagitis, unspecified whether hemorrhage K21.00 PLAN: (Z01.818) Pre-op evaluation (primary encounter diagnosis) Plan: Medically optimized for proposed surgery. (E11.9) Type 2 diabetes mellitus with hemoglobin A1c goal of less than 7.0% (HCC) Plan: COMPREHENSIVE METABOLIC PANEL, LIPID PANEL WITH DIRECT LDL IF TG IS HIGH, HEMOGLOBIN A1C, DIABETES FOOT EXAM Stable, continue to monitor. (E89.0) Hypothyroidism, postablative Plan: TSH WITH FREE T4 IF INDICATED Stable, continue to monitor. (E04.2) Multiple thyroid nodules Plan: TSH WITH FREE T4 IF INDICATED As above. (I10) HTN, goal below 140/90 Plan: Stable, continue to monitor. (K21.00) Gastroesophageal reflux disease with esophagitis, unspecified whether hemorrhage Plan: Stable, continue to monitor. Follow Up: Return in about 6 months (around 10/08/2024), or if symptoms worsen or fail to improve. Return to the office as ordered. Return sooner if having any other problems or concerns. Osito Redd Jr, DO * Nasrin Yanez LPN - 04/09/2024 5:26 PM EDT Socks and Shoes Removed for Annual Diabetic Foot Screening RIGHT FOOT: No Reddened, Cracking, Or Open Areas Noted. RIGHT Dorsalis Pedis Pulse: Palpable RIGHT Posterior Tibial Pulse: Palpable RIGHT Monofilament:Patient reports feeling monofilament pressure on plantar surface of foot LEFT FOOT: No Reddened, Cracking or Open Areas Noted. LEFT Dorsalis Pedis Pulse: Palpable LEFT Posterior Tibial Pulse: Palpable LEFT Monofilament:Patient reports feeling monofilament pressure on plantar surface of foot Do you need diabetic shoes: No documented in this encounter Nursing Notes * Nasrin Yanez LPN - 04/09/2024 5:21 PM EDT Chief Complaint Patient presents with Follow Up Pre-op Surgery 04/30/[address] Wallace right knee replacement. documented in this encounter Plan of Treatment Upcoming Encounters Date Type Department Care Team (Late st Contact Info) Description 10/20/2024 9:40 AM EDT Office Visit [facility] [address] [address] Osito Redd Jr., [address] [address] Scheduled Orders Name Type Priority Associated Diagnoses Orde r Schedule TSH WITH FREE T4 IF INDICATED Lab Routine Hypothyroidism, postablative Multiple thyroid nodules 6 Occurrences starting 04/09/2024 until 05/09/2025 COMPREHENSIVE METABOLIC PANEL Lab Routine Type 2 diabetes mellitus with hemoglobin A1c goal of less than 7.0% (HCC) 6 Occurrences starting 04/09/2024 until 05/09/2025 LIPID PANEL WITH DIRECT LDL IF TG IS HIGH Lab Routine Type 2 diabetes mellitus with hemoglobin A1c goal of less than 7.0% (HCC) 6 Occurrences starting 04/09/2024 until 04/09/2025 HEMOGLOBIN A1C Lab Routine Type 2 diabetes mellitus with hemoglobin A1c goal of less than 7.0% (HCC) 6 Occurrences starting 04/09/2024 until 05/09/2025 Health Maintenance Due Date Last Done Comments Hepatitis C Screening 1976 Colonoscopy 2003 Sigmoidoscopy 2003 Fecal Occult Blood Test 10/29/2014 10/30/19 14, 09/04/2012, 08/23/2011, Additional history exists Zoster Vaccines (3 of 3) 07/31/2022 022, 06/05/2022, 04/03/2022, Additional history exists DXA Scan 2023 Adult Wellness Visit 2024 COVID-19 Vaccine ( season) 2024 03/18/2024, 03/07/2022, 04/27/2021, Additional history exists Diabetic Eye Exam 08/29/2024 08/30/2023, , 11/01/2021, Additional history exists Albumin/Creatinine Ratio 09/11/2024 024, 09/18/2022, 04/05/2021 Depression Screening 09/30/2024 10/01/2023 HbA1c 09/30/2024 04/01/2024, 08/17, 03/14/2023, Additional history exists Mammogram 02/12/2025 02/13/2024, 01/16, 01/30/2022, Additional history exists GFR 04/01/2025 04/01/2024, 08/17, 03/14/2023, Additional history exists TSH 04/01/2025 04/01/2024, 08/17, 03/14/2023, Additional history exists Diabetic Foot Exam 04/09/2025 04/09/2024, 1 , 03/29/2022, Additional history exists Cologuard 12/18/2025 12/18/2022, 11/17, [...] this encounter Medical Devices Implanted Type Area Freight Broker Agent Device Identifier Shelf Expiration Date Model / Serial / Lot Lens Li61ao 13.00mm 15.50 - [id number] - [id number] Implanted:Qty: 1 on 12/21/2022 by Heraclio Dutta MD at OR [facility] Right: Eye [employer] 09/16/2027 [id number] / [id number] / [id number] Lens Li61ao 13.00mm 15.50 - [id number] - [id number] Implanted:Qty: 1 on 12/28/2022 by Heraclio Dutta MD at OR [facility] Left: Eye [employer] 08/16/2027 [id number] / [id number] / [id number] documented as of this encounter Visit Diagnoses Diagnosis Pre-op evaluation- Primary Preoperative examination, unspecified Type 2 diabetes mellitus with hemoglobin A1c goal of less than 7.0% (HCC) Hypothyroidism, postablative Other postablative hypothyroidism Multiple thyroid nodules Nontoxic multinodular goiter HTN, goal below 140/90 Unspecified essential hypertension Gastroesophageal reflux disease with esophagitis, unspecified whether hemorrhage documented in this encounter Advance Directives * [...] Power of Attor jona? No Care Teams Welding Machine Operator Relationship Specialty Start Date End Date Tramaine Garvin, Osito Gordon DO [address] [phone] PCP - General Family Medicine 01/16/11 documented as of this encounter
[2024-04-30] MEDS: INSULIN ASPART PER UNIT CHARGE SC SCH (12:03)
[2024-04-30] MEDS: PANTOprazole 40 MG TAB PO SCH (12:06)
--- NOTE | 2024-04-30 13:58 | Pharmacy Report ---
Glycemic Ortho Sign Off Note - Date of Service April 30, 2024 - Scope Glycemic Pharmacist consulted for glycemic control and to write orders per [facility] inpatient glycemic control protocol. - Objective Accuchecks BSG (last 24hrs):: 04/30/24 04/30/24 05:48 11:39 POC Glucose 104 H 86 - Assessment * Pt is maintained on oral antidiabeticagent[s]as anoutpatient with excellent control per recent A1c * Oral agents are not recommended for inpatient use d/t drug interactions, changing PO intake, and difficulty titrating for acute hyper/hypoglycemia. * Recommended regimen for inpatient use is SQ insulin * Low stress weight based insulin dosing appropriate since patient has minimal risk factors for insulin resistance (i.e. no steroids). * Appropriate to DC insulin and resume outpatient antidiabetic regimen at discharge * Goal is to maintain BSGs <200 mg/dl (ideally <150 mg/dl) to prevent post op complications - Plan For Inpatient Glycemic Control * Basal insulin * Not needed based on A1c, pre-op BSGs, and minimal risk factors for insulin resistance * Bolus insulin * Utilize low stress weight based NovoLog parameters per scale ACHS * Pharmacy has entered glycemic orders and is signing off of the glycemic consult. We will no longer be making adjustments to inpatient regimen. Please feel free to re-consult if needed. Thank you.
[2024-04-30] MEDS: oxyCODONE HCL IR 5 MG TAB (IMMEDIATE RELEASE) PO PRN (15:21)
[2024-04-30] MEDS: TRANEXAMIC ACID / 0.7% NACL 1,000 MG/100 ML BAG IV SCH (15:32)
[2024-04-30] MEDS: ONDANSETRON INJ 2 MG/ML 2 ML VIAL IV PRN (17:54)
[2024-04-30] MEDS: METOCLOPRAMIDE HCL INJ 5 MG/ML 2 ML VIAL IV PRN (18:30)
[2024-04-30] MEDS ORDERED: metFORMIN HCL 500 MG TAB PO SCH (21:00)
[2024-04-30] MEDS: DOCUSATE SODIUM 100 MG CAP PO SCH (21:23)
[2024-04-30] MEDS: ASPIRIN 81 MG ECTAB PO SCH (21:23)
[2024-04-30] MEDS: SENNA 8.6 MG TAB PO SCH (21:23)
[2024-04-30] MEDS: PROMETHAZINE 6.25 MG/50.25 ML BAG IV STA (23:12)
[2024-05-01] MEDS: KETOROLAC TROMETHAMINE 15 MG/ML VIAL IV PRN (04:20)
[2024-05-01 06:21] LABS: Hematocrit (blood only) 32.2 % (37.0-47.0); Mean Corpuscular Hemoglobin 27.2 pg (25.0-34.0); Mean Corpuscular Hgb Conc 31.1 g/dL (32.0-36.0); Mean Corpuscular Volume 87.7 fL (80.0-100.0); Mean Platelet Volume 9.3 fL (9.4-12.4); Platelet Count 294 K/uL (130-400); RDW Coefficient of Variation 13.7 % (11.5-14.5); RDW Standard Deviation 44.1 fL (36.4-46.3); Red Blood Count 3.67 M/uL (4.20-5.40); White Blood Count 11.23 K/ul (4.8-10.8)
[2024-05-01 06:40] LABS: Calcium 8.8 mg/dl (8.6-10.3); Creatinine Clr Calc Pharmacy 68.5 ml/min
[2024-05-01 07:25] VITALS: RESP 16; O2SAT 99
[2024-05-01] MEDS: lisinopril 10 MG TAB PO SCH (07:59)
[2024-05-01] MEDS: CeleBREX 200 MG CAP PO SCH (08:00)
[2024-05-01] MEDS: MULTIVITAMIN TAB PO SCH (08:00)
[2024-05-01] MEDS: LEVOTHYROXINE SODIUM 112 MCG TABLET PO SCH (09:26)
--- NOTE | 2024-05-01 09:46 | Consultation ---
Date of Consultation May 01, 2024 Assessment & Plan (1) Osteoarthritis of right knee: Plan Patient is a 64-year-old female with past medical history significant for hypertension, GERD, type 2 diabetes, hypothyroidism, history of thyroid nodules, osteoarthritis who is s/p Right knee arthroplasty on 04/30/24. Osteoarthritis Knee, R s/p Right knee arthroplasty with orthopedic surgery on 04/30/24 Wound care per ortho Pain management- patient had an episode where she states the oxycodone made her nauseous with vomiting. Started on scheduled IV Tylenol 1000 mg with as needed IV Toradol. COntinue home celebrex PT/OT as appropriate DVT prophylaxis per ortho-aspirin 8mg BID Incentive spirometry Monitor H&H for acute blood loss anemia; Pre-op Hgb: 12.0, stable postop at 10 Continue to monitor H/H postop DMII ISS while hospitalized Continue home metformin after discharge HTN Continue home lisinopril Hypothyroidism Continue home levothyroxine DVT prophylaxis: aspirin 81mg BID Diet: DMII Dispo: per primary team History of Present Illness Requesting Physician: Joao Wallace MD Reason for Consultation: medical management Attending Physician: Joao Wallace MD History of Present Illness Patient is a 64-year-old female with past medical history significant for hypertension, GERD, type 2 diabetes, hypothyroidism, history of thyroid nodules, osteoarthritis who is s/p Right knee arthroplasty on 04/30/24 with orthopedic surgery, Dr. Wallace. Patient has a history of OA of the right knee and follows with [facility]. The medicine team was consulted for medical management. States that postop she has been having her pain well-controlled. However, overnight she states that she had some nausea and vomiting related to the use of oxycodone. Requesting that she not have narcotics for pain upon discharge. States that she was given IV Toradol and that seemed to help with her symptoms. She states that right before this encounter was working with physical therapy and noted that initially she was doing well before she felt dizzy and weak. S tates that they took her blood pressure and it was low at that time. Denies any nausea vomiting currently. Denies any dizziness. Denied any chest pain, shortness of breath or palpitations. Allergies Allergy/AdvReac Type Severity Reaction Status Date / Time No Known Allergies Allergy Verified 04/30/24 05:55 Home Medications Medication Instructions Recorded Confirmed Type levothyroxine 112 mcg tablet 112 mcg PO QAM 03/21/24 04/30/24 History lisinopril 10 mg tablet 10 mg PO QAM 03/21/24 04/30/24 History metformin 500 mg tablet 500 mg PO BID 03/21/24 04/30/24 History omeprazole 20 mg capsule,delayed 20 mg PO QDL 03/21/24 04/30/24 History release acetaminophen 500 mg tablet 1,000 mg (2 x 500 mg) PO Q8 #90 04/30/24 Rx (Tylenol Extra Strength) tabs aspirin 81 mg tablet,delayed 81 mg PO BID #60 tabs 04/30/24 Rx release celecoxib 200 mg capsule (Celebrex) 200 mg PO BID #60 caps 04/30/24 Rx oxycodone 5 mg tablet 5 mg PO Q4H PRN pain #20 tabs 04/30/24 Rx tramadol 50 mg tablet 50 mg PO Q6H PRN pain #20 tabs 05/01/24 Rx Patient History Medical History History of COVID-19 (05/2023) Symptoms resolved DISH (diffuse idiopathic skeletal hyperostosis) History of kidney stones History of radioactive iodine thyroid ablation History of Graves' disease Hypothyroid HTN (hypertension) Diabetes Surgical History History of postoperative nausea and vomiting History of endometrial ablation History of left cataract surgery History of right cataract surgery History of ankle surgery Right, pins (subsequent removal) Family History Mother Family history of reaction to anesthesia Confusion with anesthesia at an older age Social History Smoking Status: Never smoker Do You Dip or Chew Tobacco: No; Hx Alcohol Use: No Hx Substance Use: No Preferred Language: Hungarian Communication Ability: Effective Source Water Protection Specialist Required: No Beliefs That Will Affect Care: None Current Living Situation: Alone Other Information That Helps Us Care for You: No Feels Safe at Home: Yes Assistive Devices: Walker Review of Systems Review of Systems: All systems reviewed & are unremarkable except as noted in HPI & below Physical Exam Physical Exam: General: Alert, oriented. No acute distress Psych: Appropriate mood and affect Neuro: in pain at the time of exam HEENT: NC/AT CV: RRR Resp: Breath sounds clear bilaterally, no increased effort of breathing Abdomen: Soft, nontender Extremities: RLE bandaged Results & Data Vital Signs (Past 12 Hours) Vital Signs Temp Pulse Pulse Resp BP BP Pulse Ox 05/01/24 07:24 36.6 C 78 16 136/82 99 05/01/24 03:46 36.5 C 82 14 143/82 H 98 04/30/24 23:17 36.5 C 87 14 145/81 H 97 O2 Del Method 05/01/24 07:24 Room Air 05/01/24 03:46 Room Air 04/30/24 23:17 Room Air Diagnostic Findings Knee X-Ray 04/30/24 09:41 XR knee RT 1 or 2V routine CLINICAL HISTORY: Postoperative evaluation. COMPARISON: Right knee MRI March 18, 2024. FINDINGS: Alignment of the total right knee arthroplasty is anatomic. There is no periprosthetic fracture or unexpected radiopaque foreign body. There are skin ophelia and surgical drains. IMPRESSION: Expected findings following total right knee arthroplasty. ACT 112: Negative or not required by law. Electronically signed by: Kenrick Mccabe M.D. 04/30/2024 10:00 AM (1) Osteoarthritis of right knee Osteoarthritis type: primary Qualified Code(s): M17.11 - Unilateral primary osteoarthritis, right knee
--- NOTE | 2024-05-01 10:32 | Orthopedic Progress Note ---
Date of Service May 01, 2024 Assessment & Plan (1) Osteoarthritis of right knee: Plan: POD #1 s/p right TKA WBAT RLE PT/OT DVT prophylaxis--TEDs, ASA 81 mg BID Pain control--she will go home with Tylenol and Tramadol D/C planning--home with home health today. Hemovac may be removed today. Admission and Anticipated Discharge Date Admission Date: April 30, 2024 Subjective Doing well today. The knee is painful but the pain is controlled. She was nauseous with the oxycodone so she would like to have something else at home. Physical Exam Constitutional: WD/WN, vitals as above no acute distress (Lying comfortably in bed) Musculoskeletal: Knee: + surgical incision (Right knee: Dressing C/D/I) and + surgical drain present (No drainage over the last shift.); no skin erythema and no ecchymosis Skin: no rashes, warm and dry Trauma: no evidence of skin trauma Neurologic: normal touch/pain/proprioception (RLE dorsiflexion intact.) Psychiatric: A+Ox3, euthymic affect Speech: normal rate/rhythm/volume of speech Results & Data Vital Signs (Past 12 Hours) Vital Signs Temp Pulse Pulse Resp BP BP Pulse Ox 05/01/24 07:24 36.6 C 78 16 136/82 99 05/01/24 03:46 36.5 C 82 14 143/82 H 98 04/30/24 23:17 36.5 C 87 14 145/81 H 97 O2 Del Method 05/01/24 07:24 Room Air 05/01/24 03:46 Room Air 04/30/24 23:17 Room Air Laboratory Results Laboratory Tests 05/01/24 05:53 Hgb 10.0 L Hct 32.2 L BUN 20 Creatinine 0.87 (1) Osteoarthritis of right knee Osteoarthritis type: primary Qualified Code(s): M17.11 - Unilateral primary osteoarthritis, right knee
[2024-05-01 11:56] VITALS: BP 148/81; PULSE 86; TEMP 98.4
[2024-05-01] MEDS: traMADol HCL 50 MG TABLET PO PRN (12:26)
[2024-05-01] MEDS: ACETAMINOPHEN 1,000 MG/100 ML VIAL IV SCH (13:18)
--- NOTE | 2024-05-07 15:03 | Discharge Summary ---
Date of Service May 07, 2024 Admission HPI Per Admitting Provider 64-year-old female with progressive pain and disability due to right knee osteoarthritis. Does have bilateral knee arthritis but the left knee is not as severe as the right. She has had injections in her knees but now these are not being effective on the right knee. Patient denies headaches, sweats, fevers, chills, double vision, blurred vision, cough, sore throat, chest pain, sob, wheezing, n/v/d/c, numbness, tingling, fatigue, urinary symptoms, mood disorders. ROS positive for hypertension, diabetes ,thyroid disease, osteoarthritis of the spine, acid reflux ,hiatal hernia ,kidney stones. Principal Diagnosis Right knee osteoarthritis Discharge Exam Constitutional WD/WN, vitals as above no acute distress (Lying comfortably in bed) Musculoskeletal Knee: + surgical incision (Right knee: Dressing C/D/I) and + surgical drain present (No drainage over the last shift.); no skin erythema and no ecchymosis Skin no rashes, warm and dry Trauma: no evidence of skin trauma Neurologic normal touch/pain/proprioception (RLE dorsiflexion intact.) Psychiatric A+Ox3, euthymic affect Speech: normal rate/rhythm/volume of speech Discharge Data Allergies Allergy/AdvReac Type Severity Reaction Status Date / Time No Known Allergies Allergy Verified 04/30/24 05:55 Consultations 04/28/24 11:14 Consult Hospitalist Routine Procedures Performed Operation Date: 04/30/24 07:00 Actual Procedures p Right Knee Arthroplasty(Right) - Joao Wallace MD Ordered Studies 04/30/24 05:00 US - OR guided needle placemen Routine Hospital Course (1) Osteoarthritis of right knee: POD #1 s/p right TKA WBAT RLE PT/OT DVT prophylaxis--TEDs, ASA 81 mg BID Pain control--she will go home with Tylenol and Tramadol D/C planning--home with home health today. Hemovac may be removed today. Total Time Total Time Spent Total Time Spent (In Minutes): 20 Discharge Plan Discharge Items Patient Disposition: Home - Home Health Services Reason For Visit: POSTOP RIGHT TOTAL KNEE ARTHTOPLASTY Discharge Diagnosis: Right knee osteoarthritis Activity: Per Instructions section Non-emergency contact: Surgeon Call non-emergency contact if: your pain is not controlled, your pain is worsening and your temperature is above 101 Follow-up/Referrals: Osito Redd DO [Primary Care Provider] - Diet: Regular Addtl Attending Provider Instructions: ACTIVITY RECOMMENDATIONS: SELF CARE INSTRUCTIONS AFTER TOTAL KNEE REPLACEMENT A. You may need to continue a physical therapy program after discharge from the hospital. There are several options available to you. Your doctor will assist you in selecting the best one for you. 1. An out-patient facility 3 times a week for therapy. 2. Home therapy for 1 to 2 weeks with outpatient therapy to follow. 3. Continue working on all exercises taught by physical therapy three times a day for 20 minutes on non-therapy days. Your goals should be to increase the bending of your knee to 90 degrees and beyond and to fully straighten your knee. Ice and elevate knee after exercise. B. Weight as tolerated with a walker or as instructed by your physician. C. It is okay to shower if minimal to no drainage from incision. No Baths. Do not soak wound. D. Make walking a part of your daily routine. Be up as much as comfortable with rest periods throughout the day. Rest with leg elevation is very important. Use the ice wrap frequently for the first 3-4 weeks. E. There are no restrictions on activities. You may ride in a car, shop, participate in recordist chief and all social activities. F. Wear the long elastic stockings (CASANDRA hose) 20 hours a day for one month after surgery. They can be removed several times a day for laundering and when showering. G. You may return to previous diet. H. KEO dressing: You have a KEO dressing on your surgical wound. It will remain in place for 7 days from surgery. You will be provided with a booklet with the do's and don'ts with the dressing in place. After 7 days, the dressing may be removed. If there is drainage from the surgical incision, you may cover the wound with dry dressings SPECIAL CARE INSTRUCTIONS: VERY IMPORTANT TO READ AND REVIEW A. Take Coumadin, Xarelto, Aspirin or Lovenox (blood thinning medications) as directed by your doctor. If on Coumadin, have a pro-time (blood test) drawn according to your doctor's instructions. This will tell the doctor how well the Coumadin is thinning your blood. B. There are a few signs you need to watch for after you are home. Call [facility] if you notice any of the followin. Increased severe knee pain. Some pain is expected especially when you exercise. 2. Increased swelling in your leg or knee; pain or swelling of the calf muscle in either lower leg. 3. Any redness or fluid drainage from the incision. 4. Shortness of breath or chest pain. 5. A Temperature of 101 degrees F or greater. C. Please call [facility] at if you have any concerns or questions about your operation or recovery. The doctor or his nurse will return your call promptly. D. You must take antibiotics before dental work, bladder, bowel or other surgery. Your doctor will provide you with a permanent care to carry describing this precaution. FOLLOW UP VISIT: If appointment is not already scheduled: Please call [facility] to make a follow-up appointment for 2 weeks after your surgery at . Pending Studies at Discharge: No Stand-Alone Forms: My [facility], Pain - Opioid Pain Management, Smoking Cessation Medications and DC Order Prescriptions: New acetaminophen [Tylenol Extra Strength] 500 mg Tablet 1,000 mg PO Q8 Qty: 90 0RF aspirin 81 mg Tablet,Delayed Release (Dr/Ec) 81 mg PO BID Qty: 60 0RF celecoxib [Celebrex] 200 mg Capsule 200 mg PO BID Qty: 60 0RF oxycodone 5 mg Tablet 5 mg PO Q4H PRN (Reason: pain) Qty: 20 0RF tramadol 50 mg tablet 50 mg PO Q6H PRN (Reason: pain) Qty: 20 0RF Continued lisinopril 10 mg Tablet 10 mg PO QAM omeprazole 20 mg Capsule,Delayed Release(Dr/Ec) 20 mg PO QDL levothyroxine 112 mcg Tablet 112 mcg PO QAM metformin 500 mg Tablet 500 mg PO BID Krames/Other Patient Handouts: DVT Post Op Prevention Admission Data Admit Date/Time: 04/30/24 09:41 Attending Provider: Joao Wallace Admit Provider: Joao Wallace Primary Care Provider: Osito Redd V. Other Providers: Nichole Julian; [facility] Other Interventions: Discharge Summary Assessment (RN) Last Done: 05/01/24 10:42
== END 2024-05-01 13:45 | disposition home health service (06) ==
LOC: ASU 05:03 → 3E 05:03
DX: Z79.890 Hormone replacement therapy; I10 Essential (primary) hypertension; Z79.899 Other long term (current) drug therapy; M65.961 Unspecified synovitis and tenosynovitis, right lower leg; Z86.16 Personal history of COVID-19; D62 Acute posthemorrhagic anemia; M17.11 Unilateral primary osteoarthritis, right knee; Z79.84 Long term (current) use of oral hypoglycemic drugs; E05.00 Thyrotoxicosis with diffuse goiter without thyrotoxic crisis or storm; E11.9 Type 2 diabetes mellitus without complications